=== PATIENT | male | born 1980 | race Caucasian/White ===

== ENCOUNTER 2024-12-31 06:05 | Inpatient (IN) | payer MEDICAID ==
[~2024-12-31] VITALS: Ht 185.4 cm; Wt 106.6 kg
[2024-12-31 06:22] VITALS: O2SAT 95
[2024-12-31] MEDS: ASPIRIN 325MG TABLET PO ONE (06:54)
[2024-12-31] MEDS: AMOXICILLIN/POTASSIUM CLAVULANATE 875/125MG TAB PO ONE (06:54)
[2024-12-31 07:12] LABS: BASOPHILS % 1.3 % (0.0-2.0); EOSINOPHILS % 2.5 % (0.0-5.0); HEMATOCRIT. 48.2 % (42.0-52.0); HEMOGLOBIN. 16.9 g/dL (14.0-18.0); LYMPHOCYTES % 12.5 % (20.0-50.0); MEAN PLATELET VOLUME 8.3 fl (7.4-10.4); MONOCYTES % 5.6 % (2.0-8.0); NEUTROPHILS % 78.1 % (40.0-76.0); PLATELET 189 x1000/uL (130-400); RED BLOOD CELL COUNT 4.70 mill/uL (4.7-6.1); RED CELL DISTRIBUTION WIDTH 12.7 % (11.6-14.6)
[2024-12-31 07:27] LABS: CREATININE 0.7 mg/dL (0.6-1.3); UREA NITROGEN BLOOD < 5 mg/dL (9-23)
[2024-12-31 07:29] LABS: TROPONIN I HIGH SENSITIVITY 10 ng/L (3.0-53)
[2024-12-31 09:00] VITALS: BP 159/107; PULSE 103; RESP 18; TEMP 36.5848
[2024-12-31] MEDS ORDERED: ONDANSETRON HCL 4MG/2ML INJ IV PRN (09:15)
[2024-12-31] MEDS ORDERED: IPRATROPIUM/ALBUTEROL 0.5-3(2.5)MG/3ML NEB HHN PRN (09:15)
[2024-12-31] MEDS ORDERED: GUAIFENESIN 200MG/10ML SUGAR FREE UDC PO PRN (09:15)
[2024-12-31] MEDS ORDERED: DOCUSATE SODIUM 100MG CAPSULE PO PRN (09:15)
[2024-12-31] MEDS ORDERED: GLIP5TAB22 MT (09:18)
[2024-12-31] MEDS ORDERED: LISI10TA26 MT (09:18)
[2024-12-31] MEDS: PANTOPRAZOLE SODIUM 40 MG/VIAL IV SCH (10:00)
[2024-12-31] MEDS ORDERED: DEXTROSE 50% WATER 50ML SYRINGE IV PRN (10:00)
[2024-12-31] MEDS ORDERED: CHLORDIAZEPOXIDE 25MG CAPSULE PO PRN (10:00)
[2024-12-31] MEDS: LISINOPRIL 10MG TABLET PO SCH (10:01)
[2024-12-31] MEDS: FOLIC ACID 1MG TABLET PO SCH (10:13)
[2024-12-31] MEDS: MULTIVITAMINS,THER W-MINERALS TABLET PO SCH (10:13)
[2024-12-31] MEDS: KETOROLAC 15MG/ML VIAL IV SCH (10:14)
[2024-12-31] MEDS: BLOOD SUGAR DIAGNOSTIC STRIP TEST SCH (10:20)
[2024-12-31] MEDS: INSULIN LISPRO 100 UNITS/ML SUBCUT SCH (10:22)
[2024-12-31] MEDS: NICOTINE 21MG PATCH TD SCH (10:30)
[2024-12-31] MEDS: ACETAMINOPHEN 325MG TABLET PO PRN (10:43)
[2024-12-31] MEDS: LOSARTAN 100 MG TABLET PO SCH (10:56)
[2024-12-31] MEDS: GLIPIZIDE 5MG TABLET PO SCH (10:56)
[2024-12-31] MEDS: CEFTRIAXONE 1GM/50ML 50 ML IV SCH (12:46)
[2024-12-31] MEDS: LORAZEPAM 1MG TABLET PO PRN (14:18)
[2024-12-31 16:00] VITALS: BP 142/86; PULSE 89; RESP 18; TEMP 36.4; O2SAT 97
[2024-12-31 20:00] VITALS: BP 143/93; PULSE 93; RESP 18; TEMP 36.8; O2SAT 95
[2024-12-31] MEDS: ATORVASTATIN CALCIUM 40MG TABLET PO SCH (20:53)
[2024-12-31] MEDS ORDERED: INSULIN GLARGINE 100 UNITS/ML SUBCUT SCH (22:00)
[2024-12-31] MEDS: MELATONIN 3MG TABLET PO PRN (22:05)
[2025-01-01] VITALS: BP 129/89; PULSE 95; RESP 17; TEMP 36.3; O2SAT 93
[2025-01-01 04:00] VITALS: BP 164/111; PULSE 91; RESP 18; TEMP 36.6; O2SAT 94
[2025-01-01] MEDS ORDERED: GLIPIZIDE 5MG TABLET PO SCH (06:45)
[2025-01-01 06:46] LABS: BASOPHILS % 0.3 % (0.0-2.0); EOSINOPHILS % 1.8 % (0.0-5.0); HEMATOCRIT. 45.6 % (42.0-52.0); HEMOGLOBIN. 15.7 g/dL (14.0-18.0); LYMPHOCYTES % 15.3 % (20.0-50.0); MEAN PLATELET VOLUME 8.7 fl (7.4-10.4); MONOCYTES % 6.3 % (2.0-8.0); NEUTROPHILS % 76.3 % (40.0-76.0); PLATELET 154 x1000/uL (130-400); RED BLOOD CELL COUNT 4.41 mill/uL (4.7-6.1); RED CELL DISTRIBUTION WIDTH 12.6 % (11.6-14.6)
[2025-01-01 06:59] LABS: CREATININE 0.8 mg/dL (0.6-1.3); UREA NITROGEN BLOOD 5 mg/dL (9-23)
[2025-01-01 08:00] VITALS: BP 170/104; PULSE 95; RESP 18; TEMP 36.4; O2SAT 98
[2025-01-01] MEDS ORDERED: LOSA-415 MT (10:16)
[2025-01-01] MEDS ORDERED: FLUT9.9S16 BOTHNSTRLS (10:57)
[2025-01-01] MEDS ORDERED: TOPUD PO (10:57)
[2025-01-01] MEDS ORDERED: CEFP200T13 PO (10:57)
[2025-01-01 11:06] LABS: TROPONIN I HIGH SENSITIVITY 8 ng/L (3.0-53)
[2025-01-01] MEDS: CLONIDINE 0.1MG TABLET PO PRN (11:06)
[2025-01-01 11:20] VITALS: BP 141/98; PULSE 93; RESP 18
[2025-01-01] MEDS ORDERED: GLIP5TAB22 PO (11:57)
[2025-01-01] MEDS ORDERED: LOSA100T33 PO (11:57)
[2025-01-01 12:00] VITALS: BP 166/109; PULSE 103; RESP 18; TEMP 36.4; O2SAT 98
[2025-01-03] MEDS ORDERED: THIAMINE HCL 100MG TABLET PO SCH (09:00)
== END 2025-01-01 12:00 | disposition home or self-care (01) | DRG 203 ==
LOC: ER 06:05 → 5WST 07:38 → EDBD 07:38 → EDBEDREQTM 07:57 → EDBEDREQ 07:57 → ENRESERV 08:02 → ER 08:40
PROVIDERS: ADMIT Internal Medicine; ATTEND Internal Medicine
DX: R07.89 Other chest pain (principal); E11.65 Type 2 diabetes mellitus with hyperglycemia; J01.90 Acute sinusitis, unspecified; F10.90 Alcohol use, unspecified, uncomplicated; F17.210 Nicotine dependence, cigarettes, uncomplicated; I10 Essential (primary) hypertension; Y90.9 Presence of alcohol in blood, level not specified; Z79.4 Long term (current) use of insulin; Z79.84 Long term (current) use of oral hypoglycemic drugs
CPT/HCPCS: 36415; 71045; 80048; 82962; 84484; 85025; 85379; 93005; 93970; 99291; J0696; J1815; J1885; J2470